=== PATIENT | female | born 1970 | race Caucasian/White ===

== ENCOUNTER 2020-04-09 17:27 | Emergency (ER) | payer OTHER, SELFPAY ==
[2020-04-09 17:55] VITALS: BP 122/81; PULSE 77; RESP 16; TEMP 36.8; O2SAT 100
--- NOTE | 2020-04-09 17:57 | ED.URI ---
HPI - URI/Sore Throat General Chief Complaint: Upper Respiratory Infection Stated Complaint: SORE THROAT Time Seen by Provider: 04/09/20 17:57 Source: patient and RN notes reviewed Mode of arrival: ambulatory Limitations: no limitations History of Present Illness HPI Narrative: 49-year-old female presents with concern for sore throat, pain with swallowing, fever, left ear pain. Reports exposure to strep throat. Reports she has been taking Tylenol and ibuprofen for pain relief. She denies rhinorrhea, nasal congestion, cough, difficulty breathing, headache, nausea, vomiting, chills, sweats, body aches, loss of sense of taste or smell. MD elicited complaint: sore throat Related Data Home Medications Medication Instructions Recorded Confirmed estradiol 2 mg PO DAILY 04/09/20 04/09/20 venlafaxine [Effexor] 37.5 mg PO DAILY 04/09/20 04/09/20 Allergies Allergy/AdvReac Type Severity Reaction Status Date / Time codeine Allergy Hives Verified 04/09/20 17:48 iodine Allergy Unknown Verified 04/09/20 17:48 Sulfa (Sulfonamide Allergy Unknown Verified 04/09/20 17:48 Antibiotics) Review of Systems Review of Systems: Narrative: CONSTITUTIONAL: Denies malaise, chills, sweats, or fever. EYES: Denies visual changes, redness, or discharge. ENT: Denies rhinorrhea, congestion, sinus pain, otalgia. Reports sore throat. CARDIOVASCULAR: Denies chest pain, palpitations, or edema. RESPIRATORY: Denies cough or dyspnea. GASTROINTESTINAL: Denies abdominal pain, nausea, vomiting, diarrhea SKIN: Denies rash or itching. MUSCULOSKELETAL: Denies myalgia. NEUROLOGIC: Denies headache. All systems reviewed & are unremarkable except as noted in HPI and below PMFSH Social History Social History Gender identity (if verbalized by the patient): Female Comments At time of signature, agree with nursing past medical, surgical, social and family history. There is no relevant family history pertinent to the presenting complaint Exam Narrative: Exam Narrative: GENERAL: Well-appearing, well-nourished, and in no acute distress. HEAD: Normocephalic EYES: PERRLA, conjunctivae clear ENT: Nares clear. Mucous membranes moist. TM pearly forman with dull light reflex bilaterally; no tragal tenderness. Oropharynx erythematous without lesions. Tonsils enlarged and without exudate, no drooling, no hoarseness, no trismus, uvula midline. NECK: Supple. No lymphadenopathy CHEST: Clear to auscultation, breath sounds equal. No wheezing, rhonchi, rales, or stridor. No respiratory distress, speaks in full sentences. HEART: Regular rate and rhythm. No murmur heard. SKIN: Warm, dry, no rash. NEURO: Alert and oriented x3. PSYCH: Normal mood and affect Course Course Emergency Course: Patient is aware of diagnosis, understands and agrees to treatment plan. Anticipatory guidance given. Patient agrees to follow-up as directed and is aware of reasons to seek care at the emergency department. Portions of this record may have been created with voice recognition software Vital Signs Vital signs: Vital Signs Temperature 98.2 F 04/09/20 17:55 Pulse Rate 77 04/09/20 17:55 Respiratory Rate 16 04/09/20 17:55 Blood Pressure 122/81 04/09/20 17:55 Pulse Oximetry 100 04/09/20 17:55 Temperature 98.2 F 04/09/20 17:55 Pulse Rate 77 04/09/20 17:55 Respiratory Rate 16 04/09/20 17:55 Blood Pressure 122/81 04/09/20 17:55 Pulse Oximetry 100 04/09/20 17:55 Reviewed. MDM - URI/Sore Throat MDM Narrative Medical decision making narrative: Differential diagnosis considered: Tran virus, strep pharyngitis, allergic rhinitis, upper respiratory tract infection, sinusitis, rhinosinusitis, nasopharyngitis. viral pharyngitis, otitis media, otitis externa, pneumonia, bronchitis, viral cough syndrome, viral syndrome, and influenza. Exam findings show no acute concerns or changes; patient is non-toxic appearing and is in no distress. Patient is appropriate for outpat
== END 2020-04-09 18:15 | disposition home or self-care (01) ==
PROVIDERS: Emergency Provider Nurse Practitioner; PCP Nurse Practitioner Family
DX: J02.0 Streptococcal pharyngitis (principal)
CPT/HCPCS: 87880; 99203; G0463

== ENCOUNTER 2020-12-12 08:06 | Outpatient (CLI) | payer OTHER, SELFPAY ==
--- NOTE | ~2020-12-12 | MR_ITS ---
EXAMINATION: MR shoulder RT wo con DATE: 12/12/2020 08:52 INDICATION: Right shoulder pain TECHNIQUE: Magnetic resonance imaging (MRI) of the right shoulder was performed without intravenous c ontrast. Sequences included axial PD-weighted FS FSE, coronal oblique PD-weighted FS FSE, coronal obl ique T2-weighted FS FSE, sagittal PD-weighted FS FSE, and sagittal T1-weighted SE. COMPARISON: None. FINDINGS: Coracoacromial arch: The acromion undersurface is curved in morphology (type II). Likely developmentally unfused meso acro mial os acromiale. Small cystic change along the apophyseal side of the synchondrosis. Anterior subac romial spurs at the acromial insertion of the otherwise normal coracoacromial ligament. Moderate acro mioclavicular osteoarthritis with subarticular cystic change at both sides of the joint space. Rotator cuff: Mild to moderate supraspinatus and infraspinatus tendinopathy. There is a moderate severity bursal si ded tear extending 1 cm AP along the superior facet footplate of the supraspinatus tendon and involve s greater than 50% of the tendon thickness. There is an additional bursal sided tear involving at severiano st 50% of the tendon thickness at the anterior half of the infraspinatus tendon. The tear with ragged margins originates approximately 2.5 cm from the greater tuberosity footplate. There is up to 2-2.5 cm retraction of the torn tendon fibers. The infraspinatus tendon is normal. Moderate subscapularis t endinopathy without discrete tear. Mild fatty atrophy of the subscapularis muscle belly. Biceps tendon, glenoid labrum and glenohumeral cartilage: Long head of the biceps tendon is normal. There is mild amorphous increased signal within the superio r glenoid labrum suggesting degeneration although no clearly defined linear labral tear is appreciate d. There is subarticular cystic change along the rim of the anterosuperior glenoid. Glenohumeral cart ilage is normal. Fluid: Increased fluid in the long head biceps tendon sheath which is disproportionate to the physiologic am ount fluid in the glenohumeral joint space consistent withmild bicipital tenosynovitis. No loose oste ochondral bodies. Fluid in the subacromial/subdeltoid bursa consistent with mild to moderate bursitis . Bones: Normal marrow signal aside from the previous noted degenerative subarticular cystic changes along the glenoid and at the acromioclavicular joint. Low signal intensity bone island at the inferior glenoid . IMPRESSION: 1. Mild supraspinatus and infraspinatus tendinopathy with moderate severity bursal sided tears at the superior facet footplate of the distal supraspinatus tendon and approximately 2.5 cm medial from the middle facet footplate of the infraspinatus tendon. 2. Likely mild degeneration of the superior glenoid labrum with cystic change along the underlying rosas perior rim of the glenoid. 3. Moderate acromioclavicular osteoarthritis. 4. 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 5. Moderate subacromial/subdeltoid bursitis. 6. Mild bicipital tenosynovitis. Reviewed, dictated and finalized at location A. IMPRESSION: 1. Mild supraspinatus and infraspinatus tendinopathy with moderate severity bur gianluca sided tears at the superior facet footplate of the distal supraspinatus ten don and approximately 2.5 cm medial from the middle facet footplate of the infr aspinatus tendon. 2. Likely mild degeneration of the superior glenoid labrum with cystic change a long the underlying superior rim of the glenoid. 3. Moderate acromioclavicular osteoarthritis. 4. 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 5. Moderate subacromial/subdeltoid bursitis. 6. Mild bicipital tenosynov
== END 2020-12-12 08:07 ==
PROVIDERS: PCP Nurse Practitioner Family; Visit Provider Orthopaedic Surgery
DX: M25.511 Pain in right shoulder (principal); M24.811 Other specific joint derangements of right shoulder, not elsewhere classified; M19.011 Primary osteoarthritis, right shoulder; M77.8 Other enthesopathies, not elsewhere classified; M75.51 Bursitis of right shoulder; M75.21 Bicipital tendinitis, right shoulder
CPT/HCPCS: 73221

== ENCOUNTER 2021-02-02 12:05 | Emergency (ER) | payer OTHER, SELFPAY ==
--- NOTE | 2021-02-02 12:08 | ED.URI ---
HPI - URI/Sore Throat General Chief Complaint: Upper Respiratory Infection Stated Complaint: SINUS PRESSURE/CONGESTION Time Seen by Provider: 02/02/21 12:08 Source: patient and RN notes reviewed History of Present Illness HPI Narrative: Patient is a 50-year-old female who presents the urgent care with complaints of nasal congestion, postnasal drainage, sinus congestion and pain. Patient states is been ongoing for approximately 3 weeks and she has tried a Delfina pot and [id number] [facility] medication . Patient denies any fevers, nausea, vomiting. No other acute complaints. No acute distress noted. Patient aware of the plan of care. Some parts of this dictation were generated by voice recognition software and may contain typographical and/or grammatical inaccuracies. Related Data Home Medications Medication Instructions Recorded Confirmed estradiol 2 mg PO DAILY 04/09/20 04/09/20 venlafaxine [Effexor] 37.5 mg PO DAILY 04/09/20 04/09/20 Allergies Allergy/AdvReac Type Severity Reaction Status Date / Time codeine Allergy Hives Verified 04/09/20 17:48 iodine Allergy Unknown Verified 04/09/20 17:48 Sulfa (Sulfonamide Allergy Unknown Verified 04/09/20 17:48 Antibiotics) Review of Systems Review of Systems: CONSTITUTIONAL: Denies fever, chills, or sweats. EYES: Denies visual changes, redness, or discharge. ENT: Reports of nasal congestion, sinus congestion, sinus pain CARDIOVASCULAR: Denies chest pain, palpitations, or edema. RESPIRATORY: Denies cough or dyspnea. GASTROINTESTINAL: Denies abdominal pain, nausea, vomiting, or diarrhea. GENITOURINARY: Denies dysuria or hematuria. SKIN: Denies rash or itching. MUSCULOSKELETAL: Denies back pain, joint pain, or myalgia. NEUROLOGIC: Denies headache, numbness, or weakness. All other systems reviewed are negative, except as documented in HPI. PMFSH Social History Social History Gender identity (if verbalized by the patient): Female Comments At the time of my signature, I reviewed and agree with the nursing past medical, surgical, social, and family history. There is no relevant family history pertinent to the patient complaint. Exam Narrative: GENERAL: This is a well-nourished, well-developed patient, in no apparent distress. HEAD: normocephalic, atraumatic. Frontal sinus tenderness EYES: PERRL. Sclera clear/white. Vision is grossly intact. Mild bilateral injected conjunctive a with clear drainage EARS: External ears normal, auditory canals clear and without drainage, TMs normal without perforation. Hearing grossly intact. NOSE: External nose normal with no obvious nasal discharge, nares without redness, clear rhinorrhea. THROAT: Mucous membranes moist, posterior pharynx clear. Moderate postnasal drainage NECK: Neck supple CARDIOVASCULAR: Regular rate and rhythm without murmurs, gallops, or rubs. RESPIRATORY: Clear to auscultation. Breath sounds equal bilaterally. No wheezes, rales, or rhonchi. SKIN: warm, intact with no suspicious lesions or rash, good texture and turgor. NEURO: awake, alert, and oriented to person, place and time. There were no obvious focal neurologic abnormalities. EXTREMITIES: No clubbing, cyanosis, or edema. Course Vital Signs Vital signs: Vital Signs Temperature 97.7 F 02/02/21 12:12 Pulse Rate 82 02/02/21 12:12 Respiratory Rate 12 02/02/21 12:12 Blood Pressure 109/80 02/02/21 12:12 Pulse Oximetry 98 02/02/21 12:12 Temperature 97.7 F 02/02/21 12:16 Pulse Rate 82 02/02/21 12:16 Respiratory Rate 12 02/02/21 12:16 Blood Pressure 109/80 02/02/21 12:16 Pulse Oximetry 98 02/02/21 12:16 Reviewed MDM - URI/Sore Throat MDM Narrative Medical decision making narrative: Advised the patient to complete the antibiotic regimen as prescribed. Complete the steroid regimen as prescribed. Start using Monistat with the antibiotic and take the Diflucan after the antibiotic has completed. Be sure to eat and
[2021-02-02 12:12] VITALS: BP 109/80; PULSE 82; RESP 12; TEMP 36.5; O2SAT 98
[2021-02-02 12:16] VITALS: BP 109/80; PULSE 82; RESP 12; TEMP 36.5; O2SAT 98
== END 2021-02-02 12:26 | disposition home or self-care (01) ==
PROVIDERS: Emergency Provider Nurse Practitioner Family; PCP Nurse Practitioner Family
DX: J32.9 Chronic sinusitis, unspecified (principal)
CPT/HCPCS: 99213; G0463

== ENCOUNTER 2021-05-18 11:46 | Emergency (ER) | payer OTHER, SELFPAY ==
--- NOTE | ~2021-05-18 | XR_ITS ---
EXAMINATION: XR chest 2V DATE: 05/18/2021 12:21 INDICATION: Cough, head congestion TECHNIQUE: PA and lateral views of the chest are obtained. COMPARISON: None available FINDINGS: There is subtle patchy airspace opacities of the midlung zones. There is no pleural effusio n or pneumothorax. The cardiomediastinal silhouette is normal. There is mild thoracic spondylosis. IMPRESSION: 1. Subtle airspace opacities of the midlung zones, likely pneumonia. Reviewed, dictated and finalized at location A. 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
[2021-05-18 11:53] VITALS: BP 132/78; PULSE 79; RESP 12; TEMP 36.4; O2SAT 98
--- NOTE | 2021-05-18 11:57 | ED.GENADULT ---
HPI - General Adult General Chief complaint: Upper Respiratory Infection Stated complaint: Congestion, cough, sinus headache, swollen throat Time Seen by Provider: 05/18/21 11:58 Source: patient and RN notes reviewed Mode of arrival: ambulatory Limitations: no limitations History of Present Illness HPI narrative: 50 y/o female presented for c/o sinus pressure, sore throat, and productive cough for 2 months. Coughing thick mucous and blood tinged sputum, endorses occasional nose bleeds. Denies sob, wheezing, chest pain, n/v/d/f/c. Rates throat pain 09/10. Taking cough drops and nasal spray for sx. Not vaccinated for covid. Endorses sick contacts. Related Data Home Medications Medication Instructions Recorded Confirmed estradiol 2 mg PO DAILY 04/09/20 04/09/20 venlafaxine [Effexor] 37.5 mg PO DAILY 04/09/20 04/09/20 Allergies Allergy/AdvReac Type Severity Reaction Status Date / Time codeine Allergy Hives Verified 04/09/20 17:48 iodine Allergy Unknown Verified 04/09/20 17:48 Sulfa (Sulfonamide Allergy Unknown Verified 04/09/20 17:48 Antibiotics) Review of Systems Review of Systems: CONSTITUTIONAL: Denies malaise, chills, sweats, fever EYES: Denies visual changes, redness, or discharge ENT: Reports rhinorrhea, congestion, sinus pain, otalgia, sore throat CARDIOVASCULAR: Denies chest pain, palpitations, edema RESPIRATORY: Reports cough, post nasal drainage. Denies dyspnea GASTROINTESTINAL: Denies abdominal pain, nausea, vomiting, diarrhea SKIN: Denies rash or itching MUSCULOSKELETAL: denies myalgia NEUROLOGIC: Denies headache [facility] Social History Social History Gender identity (if verbalized by the patient): Female Exam Narrative: GENERAL: Ill-appearing, nontoxic no acute distress. HEAD: Normocephalic EYES: PERRLA, conjunctivae clear ENT: Mucous membranes moist. TM pearly forman with dull light reflex bilaterally; no tragal tenderness. Oropharynx with tonsils 2+, erythematous without lesions or exudate, no drooling, no hoarseness, no trismus, uvula midline. No tripod positioning, muffled voice, soft palate or pharyngeal wall bulging NECK: Supple. No lymphadenopathy CHEST: Clear to auscultation, breath sounds equal. No wheezing, rhonchi, rales, or stridor. No respiratory distress, speaks in full sentences. HEART: Regular rate and rhythm. No murmur heard. SKIN: Warm, dry, no rash. NEURO: Alert and oriented x3. PSYCH: Normal mood and affect Course Course Emergency Course: covid positive cxr reviewed with pt requesting fluconazole after abx Patient is aware of diagnosis, understands and agrees to treatment plan. Anticipatory guidance given. Patient agrees to follow-up as directed and is aware of reasons to seek care at the emergency department. Portions of this record may have been created with voice recognition software Level of Care: Express Care Visit Vital Signs Vital signs: Vital Signs Temperature 97.6 F 05/18/21 11:53 Pulse Rate 79 05/18/21 11:53 Respiratory Rate 12 05/18/21 11:53 Blood Pressure 132/78 05/18/21 11:53 Pulse Oximetry 98 05/18/21 11:53 Temperature 97.6 F 05/18/21 11:53 Pulse Rate 79 05/18/21 11:53 Respiratory Rate 12 05/18/21 11:53 Blood Pressure 132/78 05/18/21 11:53 Pulse Oximetry 98 05/18/21 11:53 reviewed Medical Decision Making Differential Diagnosis Differential Diagnosis: Differential diagnosis considered: Tran virus, strep pharyngitis, allergic rhinitis, upper respiratory tract infection, sinusitis, rhinosinusitis, nasopharyngitis. viral pharyngitis, otitis media, otitis externa, pneumonia, bronchitis, viral cough syndrome, viral syndrome, and influenza. Exam findings show no acute concerns or changes; patient is non-toxic appearing and is in no distress. Patient is appropriate for outpatient treatment and follow-up. Vital Signs Vital Signs: Vital Signs Temperature 97.6
== END 2021-05-18 12:46 | disposition home or self-care (01) ==
PROVIDERS: Emergency Provider Nurse Practitioner Family; PCP Nurse Practitioner Family
DX: U07.1 COVID-19 (principal); J22 Unspecified acute lower respiratory infection
CPT/HCPCS: 71046; 87426; 99213; C9803; G0463

== ENCOUNTER 2021-07-16 17:53 | Emergency (ER) | payer OTHER, SELFPAY ==
[2021-07-16 18:01] VITALS: BP 119/75; PULSE 73; RESP 16; TEMP 36.3; O2SAT 99
--- NOTE | 2021-07-16 18:16 | ED.URI ---
HPI - URI/Sore Throat General Chief Complaint: Upper Respiratory Infection Stated Complaint: left side facial swelling Time Seen by Provider: 07/16/21 18:19 Source: patient, family, RN notes reviewed and old records reviewed Mode of arrival: ambulatory Limitations: no limitations History of Present Illness HPI Narrative: 51-year-old female presents to the [facility] with complaints of swelling to the left side of the face that started yesterday. Has had chronic sinus issues had intermittent bloody noses since having Covid in May. Has not followed up with a primary care provider. No treatment prior to arrival. MD elicited complaint: nasal congestion and sinus pain Related Data Home Medications Medication Instructions Recorded Confirmed estradiol 2 mg PO DAILY 04/09/20 07/16/21 venlafaxine [Effexor] 37.5 mg PO DAILY 04/09/20 07/16/21 Allergies Allergy/AdvReac Type Severity Reaction Status Date / Time codeine Allergy Hives Verified 07/16/21 18:28 iodine Allergy Unknown Verified 07/16/21 18:28 Sulfa (Sulfonamide Allergy Unknown Verified 07/16/21 18:28 Antibiotics) Review of Systems Review of Systems: All systems reviewed & are unremarkable except as noted in HPI and below Constitutional: Constitutional: Reports no additional constitutional complaints, Denies chills, Denies fever(s) and Denies headache(s) Eyes: Eyes: Reports no additional eye complaints ENT: Reports as per HPI, Denies vertigo, Denies dizziness, Denies ear discharge, Reports facial pain, Denies headache(s), Denies lip swelling, Reports nasal congestion, Denies nasal discharge, Reports sinus pain (Left), Reports sinus pressure (Left), Denies sore throat, Denies throat swelling and Denies tongue swelling Cardiovascular: Cardiovascular: Reports no additional cardiovascular complaints, Denies chest pain, Denies syncope, Denies rapid heart rate and Denies dyspnea Respiratory: Respiratory: Reports no additional respiratory complaints, Denies cough, Denies dyspnea and Denies wheezing Gastrointestinal: Gastrointestinal: Reports no additional gastrointestinal complaints, Denies abdominal pain, Denies diarrhea, Denies nausea and Denies vomiting Musculoskeletal: Musculoskeletal: Reports no additional musculoskeletal complaints and Denies numbness Integumentary/Breasts: Skin/Breast: Reports system reviewed and no additional complaints, except as docu Neurologic: Reports system reviewed and no additional complaints, except as documented, Denies vertigo, Denies dizziness, Denies syncope, Denies headache(s), Denies focal weakness and Denies numbness Psychiatric: Psychiatric: Reports no additional psychiatric complaints Allergic/Immunologic: Allergic/Immunologic: Reports no additional allergic/immunologic complaints and Denies wheezing PMFSH Social History Social History Gender identity (if verbalized by the patient): Female Comments At the time of my signature, I reviewed and agree with the nursing past medical, surgical, social, and family history. There is no relevant family history pertinent to the patient complaint. Exam Const: General: cooperative, healthy appearing, no acute distress, well developed and alert Nutritional Appearance: well nourished Orientation/consciousness: patient oriented x3 Limitations: no limitations HENMT: Head: normal to inspection Ears: external ears normal, TM's normal bilaterally and Abnormal EAC present General nose exam: Normal external nose present and Abnormal mucous membranes and turbinates present boggy bilateral and erythematous bilateral Face and sinus: no erythema, no fluctuance, no lacerations, sinus tenderness frontal (Left) and maxillary (Left) and other (Minor inflammation to the left side of the face without sign of erythema) Mouth: Yes lip normal and Yes moist mucous membranes Throat: posterior oropharynx normal and uvula midline Eyes: Conjunctivae:
== END 2021-07-16 18:35 | disposition home or self-care (01) ==
PROVIDERS: Emergency Provider Nurse Practitioner
DX: J32.9 Chronic sinusitis, unspecified (principal); R04.0 Epistaxis; F41.9 Anxiety disorder, unspecified; F32.A Depression, unspecified; Z86.16 Personal history of COVID-19
CPT/HCPCS: 99213; G0463

== ENCOUNTER 2022-04-03 12:14 | Emergency (ER) | payer OTHER, SELFPAY ==
[2022-04-03 12:24] VITALS: BP 107/76; PULSE 82; RESP 16; TEMP 36.6; O2SAT 99
--- NOTE | 2022-04-03 12:39 | ED.URI ---
HPI - URI/Sore Throat General Chief Complaint: Upper Respiratory Infection Stated Complaint: Cough/ Bloody Nose Time Seen by Provider: 04/03/22 12:41 Source: patient, RN notes reviewed and old records reviewed Mode of arrival: ambulatory Limitations: no limitations History of Present Illness HPI Narrative: 51-year-old female presents to the [facility] with 3-4 weeks of sinus congestion, intermittent bloody noses, worsening of symptoms over the last week. Now complaining of ear pressure worse on the right than the left. Denies any chest pain or shortness of breath. No coughing. Denies abdominal pain Onset (ago): week(s) (3-4) Related Data Home Medications Medication Instructions Recorded Confirmed estradiol 2 mg tablet 2 mg PO DAILY 04/09/20 04/03/22 venlafaxine 37.5 mg 37.5 mg PO DAILY 04/03/22 04/03/22 capsule,extended release 24 hr Allergies Allergy/AdvReac Type Severity Reaction Status Date / Time codeine Allergy Hives Verified 04/03/22 12:43 iodine Allergy Unknown Verified 04/03/22 12:43 Sulfa (Sulfonamide Allergy Unknown Verified 04/03/22 12:43 Antibiotics) Review of Systems Review of Systems: All systems reviewed & are unremarkable except as noted in HPI and below Constitutional: Constitutional: Reports no additional constitutional complaints Eyes: Eyes: Reports no additional eye complaints ENT: Reports as per HPI, Reports otalgia, Reports facial pain (right sinus), Denies hoarseness, Denies lip swelling, Reports nasal congestion, Reports post nasal drip and Reports sore throat Cardiovascular: Cardiovascular: Reports no additional cardiovascular complaints, Denies chest pain and Denies dyspnea Respiratory: Respiratory: Reports no additional respiratory complaints, Denies chest congestion, Denies cough and Denies dyspnea Gastrointestinal: Gastrointestinal: Reports no additional gastrointestinal complaints, Denies abdominal pain, Denies nausea and Denies vomiting Musculoskeletal: Musculoskeletal: Reports no additional musculoskeletal complaints Integumentary/Breasts: Skin/Breast: Reports system reviewed and no additional complaints, except as docu Neurologic: Reports system reviewed and no additional complaints, except as documented Psychiatric: Psychiatric: Reports no additional psychiatric complaints Allergic/Immunologic: Allergic/Immunologic: Reports no additional allergic/immunologic complaints PMFSH Past Medical History Medical History Anxiety Arthritis Chronic nonspecific colitis Osteoporosis screening Rheumatoid arthritis with rheumatoid factor of multiple sites without organ or systems involvement Rotator cuff tear arthropathy of right shoulder Surgical History Surgical History H/O: hysterectomy Hx of right knee surgery Hx of shoulder surgery Family History Family History Father Cancer Hypertension Diabetes mellitus Depression Heart disease Mother Breast cancer Lung cancer Social History Social History Smoking status: Never smoker Second hand tobacco smoke exposure: No Alcohol intake: unknown Substance use: never Substance use type: does not use 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 There is no relevant family history pertinent to the patient complaint. Exam Const: General: cooperative, healthy appearing, comfortable, no acute distress, well developed, alert and well nourish
== END 2022-04-03 12:56 | disposition home or self-care (01) ==
PROVIDERS: Emergency Provider Nurse Practitioner; PCP Nurse Practitioner Family
DX: J01.40 Acute pansinusitis, unspecified (principal); M19.90 Unspecified osteoarthritis, unspecified site; M05.9 Rheumatoid arthritis with rheumatoid factor, unspecified; F41.9 Anxiety disorder, unspecified
CPT/HCPCS: 99213; G0463

== ENCOUNTER 2022-04-28 17:23 | Emergency (ER) | payer OTHER, SELFPAY ==
[2022-04-28 17:31] VITALS: BP 116/79; PULSE 74; RESP 18; TEMP 36.3; O2SAT 100
--- NOTE | 2022-04-28 17:38 | ED.URI ---
HPI - URI/Sore Throat General Chief Complaint: Upper Respiratory Infection Stated Complaint: Ear/Nose/ Throat Time Seen by Provider: 04/28/22 18:11 Source: patient and RN notes reviewed Mode of arrival: ambulatory Limitations: no limitations History of Present Illness HPI Narrative: 51-year-old female presents with concern for ongoing sinus pain, pressure, nasal dryness, ear pressure, postnasal drainage, cough. Reports symptoms started in early March. She was treated for sinusitis in early April with Augmentin and Medrol Dosepak. She reports the symptoms improved but did not resolve. She reports symptoms have worsened. She reports she has taken multiple [id number] sinus medications without relief. She has not done sinus rinses. MD elicited complaint: nasal congestion and sinus pain Related Data Home Medications Medication Instructions Recorded Confirmed estradiol 2 mg tablet 2 mg PO DAILY 04/09/20 04/28/22 venlafaxine 37.5 mg 37.5 mg PO DAILY 04/03/22 04/28/22 capsule,extended release 24 hr Allergies Allergy/AdvReac Type Severity Reaction Status Date / Time codeine Allergy Hives Verified 04/28/22 17:30 iodine Allergy Unknown Verified 04/28/22 17:30 Sulfa (Sulfonamide Allergy Unknown Verified 04/28/22 17:30 Antibiotics) Review of Systems Review of Systems: CONSTITUTIONAL: Denies malaise, chills, sweats, or fever. EYES: Denies visual changes, redness, or discharge. ENT: Reports rhinorrhea, congestion, sinus pain, otalgia. Denies sore throat. CARDIOVASCULAR: Denies chest pain, palpitations, or edema. RESPIRATORY: Reports cough. Denies dyspnea. GASTROINTESTINAL: Denies abdominal pain, nausea, vomiting, diarrhea SKIN: Denies rash or itching. MUSCULOSKELETAL: Denies myalgia. NEUROLOGIC: Reports headache. All systems reviewed & are unremarkable except as noted in HPI and below PMFSH Past Medical History Medical History Anxiety Arthritis Chronic nonspecific colitis Osteoporosis screening Rheumatoid arthritis with rheumatoid factor of multiple sites without organ or systems involvement Rotator cuff tear arthropathy of right shoulder Surgical History Surgical History H/O: hysterectomy Hx of right knee surgery Hx of shoulder surgery Family History Family History Father Cancer Hypertension Diabetes mellitus Depression Heart disease Mother Breast cancer Lung cancer Social History Social History Smoking status: Never smoker Second hand tobacco smoke exposure: No Alcohol intake: unknown Substance use: never Substance use type: does not use Living arrangements: with family Occupation/Education: occupation 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 There is no relevant family history pertinent to the presenting complaint Exam Narrative: GENERAL: Well-appearing, well-nourished, and in no acute distress. HEAD: Normocephalic EYES: PERRLA, conjunctivae clear ENT: Nares clear, turbinates edematous and erythematous, sinus tenderness. Mucous membranes moist. TM pearly forman with dull light reflex bilaterally; no tragal tenderness. Oropharynx not erythematous without lesions. Tonsils not enlarged and without exudate, no drooling, no hoarseness, no trismus, uvula midline. NECK: Supple. No lymphadenopathy CHEST: Clear to auscultation, breath sounds equal. No wheezing, rhonchi, rales, or stridor. No respiratory distress, speaks in full sen
== END 2022-04-28 18:23 | disposition home or self-care (01) ==
PROVIDERS: Emergency Provider Nurse Practitioner; PCP Nurse Practitioner Family
DX: J01.90 Acute sinusitis, unspecified (principal); F41.9 Anxiety disorder, unspecified; M19.90 Unspecified osteoarthritis, unspecified site; M05.79 Rheumatoid arthritis with rheumatoid factor of multiple sites without organ or systems involvement
CPT/HCPCS: 99213; G0463

== ENCOUNTER 2022-07-24 11:41 | Emergency (ER) | payer OTHER, SELFPAY ==
[2022-07-24 12:16] VITALS: BP 125/83; PULSE 82; RESP 16; TEMP 36.9; O2SAT 99
--- NOTE | 2022-07-24 12:19 | ED.URI ---
HPI - URI/Sore Throat General Chief Complaint: Upper Respiratory Infection Stated Complaint: uri Time Seen by Provider: 07/24/22 12:19 Source: patient Mode of arrival: ambulatory Limitations: no limitations History of Present Illness HPI Narrative: 52-year-old female presents with complaint of nasal congestion, sinus pressure, headaches, runny nose, postnasal drainage for the past 3 weeks. Reports that this would be her 4th sinus infection since April. Is scheduled to see an ENT specialist August 03. Her last antibiotic was over a month ago and she took doxycycline. She is taking daily allergy medications. She does not want to take steroids due to feeling very emotional last time she took them. Afebrile. Reports she began having drainage and redness to left eye yesterday. All systems reviewed and negative except as noted above. Related Data Home Medications Medication Instructions Recorded Confirmed estradiol 2 mg tablet 2 mg PO DAILY 04/09/20 07/24/22 venlafaxine 37.5 mg 37.5 mg PO DAILY 04/03/22 07/24/22 capsule,extended release 24 hr fluticasone propionate 50 1 spray intranasal DAILY 07/24/22 07/24/22 mcg/actuation nasal spray,suspension loratadine 10 mg tablet 10 mg PO DAILY 07/24/22 07/24/22 zolpidem 10 mg tablet 10 mg PO DAILY 07/24/22 07/24/22 Allergies Allergy/AdvReac Type Severity Reaction Status Date / Time codeine Allergy Intermediate Hives Verified 07/24/22 12:35 iodine Allergy Intermediate Hives Verified 07/24/22 12:35 Sulfa (Sulfonamide Allergy Intermediate Hives Verified 07/24/22 12:35 Antibiotics) Review of Systems Review of Systems: CONSTITUTIONAL: Denies fever, chills, or sweats. EYES: Denies visual changes. Reports redness and discharge left eye. ENT: Reports rhinorrhea, congestion, sinus pressure. Denies sore throat, or otalgia. CARDIOVASCULAR: Denies chest pain, palpitations, or edema. RESPIRATORY: Denies cough or dyspnea. GASTROINTESTINAL: Denies abdominal pain, nausea, vomiting, or diarrhea. GENITOURINARY: Denies dysuria or hematuria. SKIN: Denies rash or itching. MUSCULOSKELETAL: Denies back pain, joint pain, or myalgia. NEUROLOGIC: reports headache. Denies numbness, or weakness. PSYCHIATRIC: Denies anxiety or depression. All other systems reviewed are negative, except as documented in HPI. [facility] Past Medical History Medical History Anxiety Arthritis Chronic nonspecific colitis Osteoporosis screening Rheumatoid arthritis with rheumatoid factor of multiple sites without organ or systems involvement Rotator cuff tear arthropathy of right shoulder Surgical History Surgical History H/O: hysterectomy Hx of right knee surgery Hx of shoulder surgery Family History Family History Father Cancer Hypertension Diabetes mellitus Depression Heart disease Mother Breast cancer Lung cancer Social History Social History Smoking status: Never smoker Second hand tobacco smoke exposure: No Alcohol intake: unknown Substance use: never Substance use type: does not use Living arrangements: with family Occupation/Education: occupation 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 There is no relevant family history pertinent to the presenting complaint. Exam Narrative: GENERAL: This is a well-nourished, well-developed patient, in no apparent distress. HEAD: normocephalic, atraumatic. EYES: PERRL. left scl
== END 2022-07-24 12:44 | disposition home or self-care (01) ==
PROVIDERS: Emergency Provider Nurse Practitioner Family
DX: J01.90 Acute sinusitis, unspecified (principal); H10.32 Unspecified acute conjunctivitis, left eye; M19.90 Unspecified osteoarthritis, unspecified site; M05.9 Rheumatoid arthritis with rheumatoid factor, unspecified; F41.9 Anxiety disorder, unspecified
CPT/HCPCS: 99213; G0463

== ENCOUNTER 2023-01-25 09:01 | Emergency (ER) | payer OTHER, SELFPAY ==
--- NOTE | 2023-01-25 09:02 | ED.URI ---
HPI - URI/Sore Throat General Chief Complaint: Upper Respiratory Infection Stated Complaint: Sinus Time Seen by Provider: 01/25/23 09:02 Source: patient Mode of arrival: ambulatory Limitations: no limitations History of Present Illness HPI Narrative: Patient is a 52 year old female that presents with sinus pressure/pain, right ear fullness and nose bleed that started in the middle of the night. Reports symptoms have been persistent for 2 months and have only worsened. Has had multiple sinus infections this year and was seen by ENT in August. Has not had a sinus infection since. Patient is currently out of allergy medication. Patient states she has still been using nasal rinses with no relief. Related Data Home Medications Medication Instructions Recorded Confirmed estradiol 2 mg tablet 2 mg PO DAILY 04/09/20 01/25/23 venlafaxine 37.5 mg 37.5 mg PO DAILY 04/03/22 01/25/23 capsule,extended release 24 hr fluticasone propionate 50 1 spray intranasal DAILY 07/24/22 01/25/23 mcg/actuation nasal spray,suspension loratadine 10 mg tablet 10 mg PO DAILY 07/24/22 01/25/23 zolpidem 10 mg tablet 10 mg PO DAILY 07/24/22 01/25/23 Allergies Allergy/AdvReac Type Severity Reaction Status Date / Time codeine Allergy Intermediate Hives Verified 01/25/23 09:18 iodine Allergy Intermediate Hives Verified 01/25/23 09:18 Sulfa (Sulfonamide Allergy Intermediate Hives Verified 01/25/23 09:18 Antibiotics) Review of Systems Review of Systems: All systems reviewed & are unremarkable except as noted in HPI and below Constitutional: Constitutional: Denies body ache(s), Denies chills, Denies fatigue, Denies fever(s), Denies headache(s), Denies malaise and Denies weakness Eyes: Eyes: Denies blurry vision, Denies itchy eyes and Denies loss of vision ENT: Reports otalgia (Ear fullness), Denies headache(s), Reports epistaxis, Reports nasal congestion, Reports sinus pain, Reports sinus pressure and Denies sore throat Cardiovascular: Cardiovascular: Denies chest pain, Denies irregular heart rhythm and Denies dyspnea Respiratory: Respiratory: Reports cough and Denies dyspnea Gastrointestinal: Gastrointestinal: Denies abdominal pain, Denies diarrhea, Denies nausea and Denies vomiting Musculoskeletal: Musculoskeletal: Denies back pain, Denies myalgias and Denies arthralgias Integumentary/Breasts: Skin/Breast: Denies pruritus and Denies rash Neurologic: Denies headache(s), Denies loss of vision and Denies weakness Psychiatric: Psychiatric: Reports no additional psychiatric complaints Endocrine: Endocrine: Denies fatigue Allergic/Immunologic: Allergic/Immunologic: Denies itchy eyes PMFSH Past Medical History Medical History Anxiety Arthritis Chronic nonspecific colitis Osteoporosis screening Rheumatoid arthritis with rheumatoid factor of multiple sites without organ or systems involvement Rotator cuff tear arthropathy of right shoulder Surgical History Surgical History H/O: hysterectomy Hx of right knee surgery Hx of shoulder surgery Family History Family History Father Cancer Hypertension Diabetes mellitus Depression Heart disease Mother Breast cancer Lung cancer Social History Social History Smoking status: Never smoker Second hand tobacco smoke exposure: No Alcohol intake: unknown Substance use: never Substance use type: does not use Living arrangements: with family Occupation/Education: occupation 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
[2023-01-25 09:11] VITALS: BP 116/87; PULSE 80; RESP 16; TEMP 36.7; O2SAT 98
== END 2023-01-25 09:27 | disposition home or self-care (01) ==
PROVIDERS: Emergency Provider Nurse Practitioner Family; PCP Nurse Practitioner Family
DX: J01.90 Acute sinusitis, unspecified (principal); M19.90 Unspecified osteoarthritis, unspecified site; M05.79 Rheumatoid arthritis with rheumatoid factor of multiple sites without organ or systems involvement; F41.9 Anxiety disorder, unspecified
CPT/HCPCS: 99213; G0463

== ENCOUNTER 2023-01-27 15:19 | Outpatient (CLI) | payer OTHER, SELFPAY ==
--- NOTE | ~2023-01-27 | CT_ITS ---
EXAMINATION: CT sinus wo con DATE: 01/27/2023 15:33 INDICATION: Chronic sinusitis TECHNIQUE: Computed tomography (CT) of the paranasal sinuses was performed without intravenous contra st. The dose-length product was 279.12 mGy-cm. Automated exposure control and iterative reconstructio n technique were employed. COMPARISON: None FINDINGS: There is mild mucosal thickening of the maxillary sinuses. No air-fluid levels. Mastoids ar e pneumatized. No mucoperiosteal reaction. Rightward nasal septal deviation. Ostiomeatal units are pa tent. IMPRESSION: 1. Mild maxillary sinus disease. Reviewed, dictated and finalized at location B.
== END 2023-01-27 15:20 ==
PROVIDERS: PCP Family Medicine; Visit Provider Otolaryngology
DX: J32.0 Chronic maxillary sinusitis (principal)
CPT/HCPCS: 70486

== ENCOUNTER 2023-03-17 17:58 | Emergency (ER) | payer OTHER, SELFPAY ==
[2023-03-17] VITALS (20 sets, daily range): BP systolic 106–131; BP diastolic 73–94; PULSE 67–81; RESP 14–19; O2SAT 97–100
--- NOTE | 2023-03-17 20:05 | ED.GENADULT ---
HPI - General Adult General Chief complaint: Epistaxis Stated complaint: epitaxis Time Seen by Provider: 03/17/23 19:14 History of Present Illness HPI narrative: patient is a 52-year-old female presents emerged department with chief complaint of epistaxis. Patient reports that she had a septoplasty done today at [facility] by Dr. Parson patient states that when she went home she started having bleeding out of her nostrils. The patient reports a large amount of blood and reports that she feels as though the packing has migrated to the tip of her nose on the left side. Patient reports that she has having pain and has not been able to take her oral pain medications yet the patient denies being on blood thinners denies history of bleeding disorder. Related Data Home Medications Medication Instructions Recorded Confirmed estradiol 2 mg tablet 2 mg PO DAILY 04/09/20 01/25/23 venlafaxine 37.5 mg 37.5 mg PO DAILY 04/03/22 01/25/23 capsule,extended release 24 hr fluticasone propionate 50 1 spray intranasal DAILY 07/24/22 01/25/23 mcg/actuation nasal spray,suspension loratadine 10 mg tablet 10 mg PO DAILY 07/24/22 01/25/23 zolpidem 10 mg tablet 10 mg PO DAILY 07/24/22 01/25/23 Allergies Allergy/AdvReac Type Severity Reaction Status Date / Time codeine Allergy Intermediate Hives Verified 03/17/23 18:07 iodine Allergy Intermediate Hives Verified 03/17/23 18:07 Sulfa (Sulfonamide Allergy Intermediate Hives Verified 03/17/23 18:07 Antibiotics) Review of Systems Review of Systems: A 10 system review of systems was completed on the patient and is negative except for what is stated in the HPI. Nursing and ancillary documentation was reviewed. [facility] Past Medical History Medical History Anxiety Arthritis Chronic nonspecific colitis Osteoporosis screening Rheumatoid arthritis with rheumatoid factor of multiple sites without organ or systems involvement Rotator cuff tear arthropathy of right shoulder Surgical History Surgical History H/O: hysterectomy Hx of right knee surgery Hx of shoulder surgery Family History Family History Father Cancer Hypertension Diabetes mellitus Depression Heart disease Mother Breast cancer Lung cancer Social History Social History Smoking status: Never smoker Second hand tobacco smoke exposure: No Alcohol intake: unknown Substance use: never Substance use type: does not use Living arrangements: with family Occupation/Education: occupation 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 HEAD: Normocephalic, atraumatic. EYES: PERRLA and EOMI. ENT: Nares clear, no rhinorrhea or epistaxis. Mucous membranes moist. There is dried blood around the nostrils. There is packing present that is in the anterior portion of the left nostril NECK: Supple. CHEST: Clear to auscultation. No respiratory distress. HEART: Regular rate and rhythm. No murmur heard. Normal peripheral pulses. ABDOMEN: Soft, nontender, nondistended, normal active bowel sounds. EXTREMITIES: Normal range of motion. No edema. SKIN: Warm, dry, no rash. NEURO: No focal deficits. Alert and oriented x3. PSYCH: Normal mood and affect. Course Vital Signs Vital signs: Vital Signs Pulse Rate 81 03/17/23 17:56 Respiratory Rate 18 03/17/23 17:56 Blood Pressure 117/86 03/17/23 17:56 Pulse Oximetry 1
[2023-03-17] MEDS: MORPHINE SULFATE (*CRX) 2 MG/ML INJ IV PUSH (20:07)
[2023-03-17] MEDS: ONDANSETRON INJ 4 MG/2 ML VIAL IV PUSH (20:07)
[2023-03-17 20:09] LABS: Basophils Percent Auto 0.2 % (0.2-1.2); Eosinophils Percent Auto 0.2 % (0-4.4); Hematocrit 37.9 % (37.0-47.0); Hemoglobin 12.4 g/dL (12.0-15.0); Immature Granulocyte Absolute 0.07 K/mm3 (0.00-0.031); Immature Granulocyte Percent A 0.4 % (0-0.5); Lymphocytes Absolute Auto 0.68 K/mm3 (0.9-3.2); Mean Corpuscular HGB Conc 32.7 g/dl (32-36); Mean Corpuscular Hemoglobin 29.5 pg (26-34); Mean Platelet Volume 12.5 fl (7.4-10.4); Monocytes Absolute Auto 0.9 K/mm3 (0.1-0.6); Monocytes Percent Auto 5.4 % (2.6-8.5); Neutrophils Absolute Auto 15.1 K/mm3 (1.3-6.7); Neutrophils Percent Auto 89.8 % (45.5-73.1); Platelet Count Result 190 k/mm3 (150-375); Red Blood Count 4.21 M/mm3 (4.2-5.4); Red Cell Distribution Width 13.2 % (11.5-14.5); White Blood Count 16.8 K/mm3 (4.5-10.0)
[2023-03-17] MEDS: OXYMETAZOLINE HCL 0.05% NAS 15 ML BTL (*BKC) 1 SPRAY NASAL (20:10)
[2023-03-17 20:26] LABS: Alanine Aminotransferase 14 U/L (6-35); Albumin Level 4.2 g/dL (3.5-5.1); Alkaline Phosphatase 68 U/L (38-126); Anion Gap 6 mmol/L (8-16); Aspartate Amino Transferase 28 U/L (14-36); Bilirubin,Total 0.5 mg/dL (0.2-1.3); Blood Urea Nitrogen 15 mg/dL (7-17); Calcium 9.1 mg/dL (8.4-10.2); Carbon Dioxide 26 mmol/L (22-30); Chloride 104 mmol/L (98-107); Estimated CRCL calculation 75 ml/min; Estimated Glomerular Filt Rate > 60; Glucose 132 mg/dL (65-110); Potassium 4.2 mmol/L (3.4-5.0); Sodium 136 mmol/L (137-145)
[2023-03-17 20:42] LABS: INR 0.9; Prothrombin Time 12.8 Seconds (11.1-14.7)
[2023-03-17 20:43] LABS: Partial Thromboplastin Time 25.1 SECONDS (22.3-36.8)
== END 2023-03-17 21:26 | disposition home or self-care (01) ==
PROVIDERS: Emergency Provider Emergency Medicine; PCP Family Medicine
DX: R04.0 Epistaxis (principal)
CPT/HCPCS: 36415; 80053; 85025; 85610; 85730; 96374; 96375; 99284; A9270; J2270; J2405

== ENCOUNTER 2023-06-02 14:33 | Emergency (ER) | payer OTHER, SELFPAY ==
--- NOTE | ~2023-06-02 | XR_ITS ---
EXAMINATION: XR hand LT min 3V INDICATION: Left hand pain TECHNIQUE: Three views of the left hand are obtained. COMPARISON: None available FINDINGS: There is a small osseous fragment projecting dorsal to the second middle phalanx near the d istal interphalangeal joint. There are 2 mm of medial subluxation of the second distal phalanx with r espect to the middle phalanx. 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 Moderate osteoarthritis is also noted at the first carpometacarpal joint. There is mild soft ti ssue swelling of the second finger. IMPRESSION: 1. Findings suggestive small dorsal avulsion fracture near the second distal interphalangeal joint wi th mild medial subluxation of the second distal phalanx with respect to the middle phalanx. Reviewed, dictated and finalized at location F. CARE ATTENDANT IMPRESSION: 1. Findings suggestive small dorsal avulsion fracture near the second distal in terphalangeal joint with mild medial subluxation of the second distal phalanx w ith respect to the middle phalanx.
[2023-06-02 14:50] VITALS: BP 123/97; PULSE 82; RESP 16; TEMP 36.7; O2SAT 99
--- NOTE | 2023-06-02 14:50 | ED.UPPEXIN ---
HPI - Extremity Injury (Upper) General Chief Complaint: Extremity Injury, Upper Stated Complaint: Left Hand Pain Time Seen by Provider: 06/02/23 14:51 Source: patient Mode of arrival: ambulatory Limitations: no limitations History of Present Illness HPI narrative: Patient is a 52-year-old female who presents with left hand wrist and hand pain after fall a month ago. Patient states she thought it would improve over time. Reports intermittent tingling and numbness to wrist and 1st and 2nd digit. Has not been seen by PCP or had imaging done since incident. Related Data Home Medications Medication Instructions Recorded Confirmed estradiol 2 mg tablet 2 mg PO DAILY 04/09/20 06/02/23 venlafaxine 37.5 mg 37.5 mg PO DAILY 04/03/22 06/02/23 capsule,extended release 24 hr zolpidem 10 mg tablet 10 mg PO DAILY 07/24/22 06/02/23 Allergies Allergy/AdvReac Type Severity Reaction Status Date / Time codeine Allergy Intermediate Hives Verified 06/02/23 14:44 iodine Allergy Intermediate Hives Verified 06/02/23 14:44 Sulfa (Sulfonamide Allergy Intermediate Hives Verified 06/02/23 14:44 Antibiotics) Review of Systems Review of Systems: All systems reviewed & are unremarkable except as noted in HPI and below Constitutional: Constitutional: Denies body ache(s), Denies chills, Denies fatigue, Denies fever(s), Denies headache(s), Denies malaise and Denies weakness Eyes: Eyes: Denies blurry vision, Denies irritation and Denies loss of vision ENT: Denies otalgia, Denies headache(s), Denies nasal discharge, Denies sinus pain and Denies sore throat Cardiovascular: Cardiovascular: Denies chest pain, Denies irregular heart rhythm and Denies dyspnea Respiratory: Respiratory: Denies dyspnea Gastrointestinal: Gastrointestinal: Denies abdominal pain, Denies melena, Denies hematochezia, Denies diarrhea, Denies nausea and Denies vomiting Musculoskeletal: Musculoskeletal: Denies back pain, Denies myalgias and Reports arthralgias Integumentary/Breasts: Skin/Breast: Denies pruritus and Denies rash Neurologic: Denies headache(s), Denies loss of vision and Denies weakness Psychiatric: Psychiatric: Reports no additional psychiatric complaints Endocrine: Endocrine: Denies fatigue PMFSH Past Medical History Medical History Anxiety Arthritis Chronic nonspecific colitis Osteoporosis screening Rheumatoid arthritis with rheumatoid factor of multiple sites without organ or systems involvement Rotator cuff tear arthropathy of right shoulder Surgical History Surgical History H/O: hysterectomy Hx of right knee surgery Hx of shoulder surgery Family History Family History Father Cancer Hypertension Diabetes mellitus Depression Heart disease Mother Breast cancer Lung cancer Social History Social History Smoking status: Never smoker Second hand tobacco smoke exposure: No Alcohol intake: unknown Substance use: never Substance use type: does not use Living arrangements: with family Occupation/Education: occupation 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 There is no relevant family history pertinent to the presenting complaint. Exam Const: General: cooperative, healthy appearing, comfortable, no acute distress and well nourished Nutritional Appearance: well nourished Orientation/consciousness: patient oriented x3 Limitations: no limitations HENMT: Head: normal t
== END 2023-06-02 15:50 | disposition home or self-care (01) ==
PROVIDERS: Emergency Provider Nurse Practitioner Family; PCP Family Medicine
DX: S63.502A Unspecified sprain of left wrist, initial encounter (principal); S66.912A Strain of unspecified muscle, fascia and tendon at wrist and hand level, left hand, initial encounter; S62.661A Nondisplaced fracture of distal phalanx of left index finger, initial encounter for closed fracture; W19.XXXA Unspecified fall, initial encounter; F41.9 Anxiety disorder, unspecified; M19.90 Unspecified osteoarthritis, unspecified site; M05.79 Rheumatoid arthritis with rheumatoid factor of multiple sites without organ or systems involvement
CPT/HCPCS: 29130; 73130; 99214; G0463

== ENCOUNTER 2023-06-09 13:25 | Emergency (ER) | payer OTHER, SELFPAY ==
[2023-06-09 13:44] VITALS: BP 105/72; PULSE 91; RESP 16; TEMP 37.2; O2SAT 99
--- NOTE | 2023-06-09 13:48 | ED.URI ---
HPI - URI/Sore Throat General Chief Complaint: Upper Respiratory Infection Stated Complaint: fever, flu-like symptoms Time Seen by Provider: 06/09/23 13:50 Source: patient Mode of arrival: ambulatory Limitations: no limitations History of Present Illness HPI Narrative: Katie is a 52-year-old female patient presenting to the clinic today with complaints of flu-like symptoms. She reports she has got a fever, cough, congestion, body aches, and chills for the past 3 days. She denies any chest pain or shortness of breath. Highest fever was 102. Denies any sore throat MD elicited complaint: fever, cough and nasal congestion Related Data Home Medications Medication Instructions Recorded Confirmed estradiol 2 mg tablet 2 mg PO DAILY 04/09/20 06/09/23 venlafaxine 37.5 mg 37.5 mg PO DAILY 04/03/22 06/09/23 capsule,extended release 24 hr zolpidem 10 mg tablet 10 mg PO DAILY 07/24/22 06/09/23 meloxicam 15 mg tablet See Rx Instructions .Route .COMPLEX 06/09/23 06/09/23 Allergies Allergy/AdvReac Type Severity Reaction Status Date / Time codeine Allergy Intermediate Hives Verified 06/09/23 13:42 iodine Allergy Intermediate Hives Verified 06/09/23 13:42 Sulfa (Sulfonamide Allergy Intermediate Hives Verified 06/09/23 13:42 Antibiotics) Review of Systems Review of Systems: Pertinent positives per HPI. Patient denies any fever, chills, rash, headache, visual changes, dizziness, cough, shortness of breath, chest pain, palpitations, nausea, vomiting, diarrhea, constipation, abdominal pain, or any urinary issues. ON LICENSE OF [facility] Past Medical History Medical History Anxiety Arthritis Chronic nonspecific colitis Osteoporosis screening Rheumatoid arthritis with rheumatoid factor of multiple sites without organ or systems involvement Rotator cuff tear arthropathy of right shoulder Surgical History Surgical History H/O: hysterectomy Hx of right knee surgery Hx of shoulder surgery Family History Family History Father Cancer Hypertension Diabetes mellitus Depression Heart disease Mother Breast cancer Lung cancer Social History Social History Smoking status: Never smoker Second hand tobacco smoke exposure: No Alcohol intake: unknown Substance use: never Substance use type: does not use Living arrangements: with family Occupation/Education: occupation 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 There is no relevant family history pertinent to the patient complaint. Exam Narrative: General: Well-developed, well nourished, in no apparent distress Head: Normocephalic, atraumatic Eyes: Pupils equally round and reactive to light bilaterally, EOM intact, sclera and conjunctive clear, no discharge, lids normal Ears: TMs intact and congested, ear canals clear, no drainage, grossly hearing normal. Nose: Nares patent, clear discharge, moderate inflammation, no sinus tenderness. Mouth: Oral pharynx without lesions or masses, good dentition, MMM. Postnasal drip Neck: Supple, trachea midline, no enlargement of anterior or posterior cervical nodes, no thyroid masses or goiter palpable. Cardio: Regular rate and rhythm, s1 and s2 normal, no murmur appreciated. Resp: Clear to auscultation bilaterally, no rhonchi, rales, wheezing or rubs Course Course Emergency Course: Portions of this record may have been created with
== END 2023-06-09 14:10 | disposition home or self-care (01) ==
PROVIDERS: Emergency Provider Nurse Practitioner Family; PCP Family Medicine
DX: J10.1 Influenza due to other identified influenza virus with other respiratory manifestations (principal); M06.9 Rheumatoid arthritis, unspecified; Z79.899 Other long term (current) drug therapy; Z79.1 Long term (current) use of non-steroidal anti-inflammatories (NSAID); Z20.822 Contact with and (suspected) exposure to COVID-19
CPT/HCPCS: 87426; 87804; 99213; G0463

== ENCOUNTER 2023-12-27 10:54 | Outpatient (CLI) | payer OTHER, SELFPAY ==
--- NOTE | ~2023-12-27 | CT_ITS ---
Non-contrast Head CT History: Headache Technique: Axial non-contrast imaging of the brain was performed. Dose reduction technique was used on this scan by utilizing automated exposure control and iterative reconstruction technique. The dose -length product (DLP) was 599.57 mGy-cm. Findings: There is no evidence of intracranial hemorrhage, mass lesion, or acute infarct. Brain par enchyma appears normal. The ventricles and subarachnoid spaces are normal in size. The calvarium ap pears normal. The visualized paranasal sinuses and mastoid air cells are clear. Impression: No significant abnormality seen. Reviewed, dictated and finalized at location . Impression: No significant abnormality seen.
--- NOTE | ~2023-12-27 | XR_ITS ---
Left wrist Technique: PA, oblique, lateral, and ulnar deviation views were obtained. Clinical History: Pain Findings: No acute fracture or dislocation is seen. There is moderate to advanced degenerative change of the first CMC joint. Soft tissues are unremarkable. 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 Reviewed, dictated and finalized at [facility]. 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
== END 2023-12-27 10:55 | disposition home or self-care (01) ==
PROVIDERS: PCP Internal Medicine; Visit Provider Nurse Practitioner Family
DX: M18.12 Unilateral primary osteoarthritis of first carpometacarpal joint, left hand (principal); M25.562 Pain in left knee; R51.9 Headache, unspecified
CPT/HCPCS: 70450; 73110; 73562

== ENCOUNTER 2024-01-21 10:13 | Emergency (ER) | payer OTHER, SELFPAY ==
[2024-01-21 10:22] VITALS: BP 127/80; PULSE 80; RESP 16; TEMP 36.2; O2SAT 99
[2024-01-21 10:25] VITALS: BP 127/80; PULSE 80; RESP 16; TEMP 36.2; O2SAT 99
--- NOTE | 2024-01-21 10:37 | ED.SKABFB ---
HPI - Skin/Abscess/Foreign Bdy General Chief complaint: Extremity Injury, Upper Stated complaint: left wrist issue Source: patient Mode of arrival: ambulatory Limitations: no limitations History of Present Illness HPI narrative: 53-year-old female presents to [facility] with complaints of area of excoriation, Mild swelling and redness to her left wrist for the past week. Patient reports that she received a cortisone injection to her left wrist approximately 1 month ago And her symptoms are at site of injection. Patient reports that she called rheumatology office that completed the injection this week but has not heard back from them. patient denies shortness of breath, fever, body aches, chills, chest pain or decreased range of motion. Patient has long history of left wrist pain. Patient reports that she does apply cool compress to the area times. MD complaint: rash Onset (ago): month(s) (1) Location: LUE Associated symptoms: denies other symptoms Related Data Home Medications Medication Instructions Recorded Confirmed estradiol 2 mg tablet 2 mg PO DAILY 04/09/20 01/21/24 venlafaxine 37.5 mg 37.5 mg PO DAILY 04/03/22 01/21/24 capsule,extended release 24 hr zolpidem 10 mg tablet 10 mg PO DAILY 07/24/22 01/21/24 folic acid 1 mg tablet 1 mg PO DAILY 01/21/24 01/21/24 gabapentin 100 mg capsule 100 mg PO TID 01/21/24 01/21/24 Allergies Allergy/AdvReac Type Severity Reaction Status Date / Time codeine Allergy Intermediate Hives Verified 01/21/24 10:22 iodine Allergy Intermediate Hives Verified 01/21/24 10:22 Sulfa (Sulfonamide Allergy Intermediate Hives Verified 01/21/24 10:22 Antibiotics) Review of Systems Constitutional: Constitutional: Denies chills, Denies fatigue, Denies fever(s) and Denies weakness ENT: Denies nasal congestion and Denies sore throat Cardiovascular: Cardiovascular: Denies chest pain Respiratory: Respiratory: Denies cough, Denies dyspnea and Denies wheezing Gastrointestinal: Gastrointestinal: Denies diarrhea, Denies nausea and Denies vomiting Musculoskeletal: Musculoskeletal: Denies arthralgias, Denies joint swelling and Denies muscle cramps Integumentary/Breasts: Skin/Breast: Denies pruritus, Reports erythema, Reports rash and Denies skin ulcer Neurologic: Denies vertigo and Denies dizziness PMFSH Past Medical History Medical History Anxiety Arthritis Chronic nonspecific colitis Osteoporosis screening Rheumatoid arthritis with rheumatoid factor of multiple sites without organ or systems involvement Rotator cuff tear arthropathy of right shoulder Surgical History Surgical History H/O: hysterectomy Hx of right knee surgery Hx of shoulder surgery Family History Family History Father Cancer Hypertension Diabetes mellitus Depression Heart disease Mother Breast cancer Lung cancer Social History Social History Smoking status: Never smoker Second hand tobacco smoke exposure: No Alcohol intake: unknown Substance use: never Substance use type: does not use Living arrangements: with family Occupation/Education: occupation 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 There is no relevant family history pertinent to the presenting complaint. Exam Const: General: healthy appearing and no acute distress Nutritional Appearance: well nourished Orientation/consciousness: patient oriented x3 Limitations: no
== END 2024-01-21 10:51 | disposition home or self-care (01) ==
PROVIDERS: Emergency Provider Nurse Practitioner Family; PCP Nurse Practitioner Family
DX: I80.9 Phlebitis and thrombophlebitis of unspecified site (principal); L03.114 Cellulitis of left upper limb; M19.90 Unspecified osteoarthritis, unspecified site; F41.9 Anxiety disorder, unspecified; M05.79 Rheumatoid arthritis with rheumatoid factor of multiple sites without organ or systems involvement
CPT/HCPCS: 99213; G0463

== ENCOUNTER 2024-04-25 16:02 | Emergency (ER) | payer OTHER, SELFPAY ==
--- NOTE | ~2024-04-25 | XR_ITS ---
EXAMINATION: XR chest 2V DATE: 04/25/2024 16:52 INDICATION: Cough and congestion. TECHNIQUE: Frontal and lateral views of the chest were obtained. COMPARISON: Chest 2 views 05/18/2021 FINDINGS: There is no pneumonia, pleural effusion, or pneumothorax. The heart size is normal. There i s mild chronic anterior wedging of multiple mid thoracic vertebral bodies. IMPRESSION: 1. No acute cardiopulmonary disease. Reviewed, dictated and finalized at location B. GE TURNER
[2024-04-25 16:08] VITALS: BP 124/88; PULSE 71; RESP 16; TEMP 36.6; O2SAT 99
--- NOTE | 2024-04-25 17:28 | ED_ITS ---
HPI - URI/Sore Throat General Chief Complaint: Upper Respiratory Infection Stated Complaint: Sinus Source: patient, RN notes reviewed and old records reviewed Mode of arrival: ambulatory Limitations: no limitations History of Present Illness HPI Narrative: Patient presents with complaints of sinus pain in congestion, cough. She reports that she has been sick for almost 4 weeks. She reports the symptoms began as sinus type symptoms, feels as though they have ?moved to my chest?. She has been taking multiple [id number] medications with moderate relief. She reports that cough use be more productive, now feels as though she is having difficulty expect rating. She denies any shortness of breath. Does report occasional wheeze Related Data Home Medications ?Medication ?Instructions ?Recorded ?Confirmed ?Last Taken ?Type estradiol 2 mg tablet 2 mg PO DAILY 04/09/20 01/21/24 Unknown History venlafaxine 37.5 mg 37.5 mg PO DAILY 04/03/22 01/21/24 Unknown History capsule,extended release 24 hr zolpidem 10 mg tablet 10 mg PO DAILY 07/24/22 01/21/24 Unknown History folic acid 1 mg tablet 1 mg PO DAILY 01/21/24 01/21/24 Unknown History gabapentin 100 mg capsule 100 mg PO TID 01/21/24 01/21/24 Unknown History Allergies Allergy/AdvReac Type Severity Reaction Status Date / Time codeine Allergy Intermediate Hives Verified 04/25/24 16:06 iodine Allergy Intermediate Hives Verified 04/25/24 16:06 Sulfa (Sulfonamide Allergy Intermediate Hives Verified 04/25/24 16:06 Antibiotics) Review of Systems Review of Systems: All systems reviewed & are unremarkable except as noted in HPI and below Constitutional: Constitutional: Reports no additional constitutional complaints, Reports headache(s) and Reports lethargy ENT: Reports system reviewed and no additional complaints, except as documented, Reports nasal congestion, Reports nasal discharge, Reports sinus pain, Reports sinus pressure and Reports sore throat Cardiovascular: Cardiovascular: Reports no additional cardiovascular complaints Respiratory: Respiratory: Reports no additional respiratory complaints, Reports cough and Reports wheezing Gastrointestinal: Gastrointestinal: Reports no additional gastrointestinal complaints [facility] Past Medical History Medical History Osteoporosis screening Chronic nonspecific colitis Rheumatoid arthritis with rheumatoid factor of multiple sites without organ or systems involvement Rotator cuff tear arthropathy of right shoulder Arthritis Anxiety Surgical History Surgical History Hx of right knee surgery Hx of shoulder surgery H/O: hysterectomy Family History Family History Father Cancer Hypertension Diabetes mellitus Depression Heart disease Mother Breast cancer Lung cancer Social History Social History Smoking status: Never smoker Second hand tobacco smoke exposure: No Alcohol intake: unknown Substance use: never Substance use type: does not use Living arrangements: with family Occupation/Education: occupation 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 Gender identity (if verbalized by the patient): Female Sexual Orientation (if Verbalized by the Patient): Straight or Heterosexual Spiritual care concerns: No Agree to blood products: Yes Comments At the time of my signature, I reviewed and agree with the nursing past medical, surgical, social, and family history. There is no relevant family history pertinent to the patient complaint. Exam Const: General: cooperative, no acute distress, alert and awake Orientation/consciousness: oriented to person, oriented to place and oriented to time HENMT: Head: normal to inspection Ears: TM abnormal dull bilateral Face and sinus: sinus tenderness maxillary (right) Mouth: Yes moist mucous membranes Throat: posterior oropharynx abnormal erythema Resp: Effort & Inspection: normal respiratory effort and able to speak in complete sentences Auscultation: clear to auscultation bilaterally, no crackles, no rales, no rhonchi and no wheezes Cardio: Palpation: normal PMI Rate: regular rate Rhythm: regular rhythm Heart sounds: S1 normal heart sound present and S2 normal heart sound present Neuro: General: oriented to person, oriented to place and oriented to time Cranial nerves: Yes CN's II-XII intact bilaterally Psych: Appearance: grossly normal Thought process: Normal thought process present Insight: Good insight present (Psych) Judgement: Good judgement present (Psych) Course Course Level of Care: Express Care Visit Vital Signs Vital signs: Vital Signs Temperature 97.9 F 04/25/24 16:08 Pulse Rate 71 04/25/24 16:08 Respiratory Rate 16 04/25/24 16:08 Blood Pressure 124/88 04/25/24 16:08 Pulse Oximetry 99 01/23/25 16:08 Oxygen Delivery Room Air 04/25/24 16:08 Temperature 97.9 F 04/25/24 16:08 Pulse Rate 71 04/25/24 16:08 Respiratory Rate 16 04/25/24 16:08 Blood Pressure 124/88 04/25/24 16:08 Pulse Oximetry 99 04/25/24 16:08 Oxygen Delivery Room Air 04/25/24 16:08 Reviewed MDM - URI/Sore Throat MDM Narrative Medical decision making narrative: Chest x-ray with no acute process noted. Patient nontoxic appearing. History and exam consistent with sinusitis. Patient nontoxic appearing, stable for discharge home with p.o. antibiotic therapy. Steroid burst Discharge instructions reviewed with patient, as well as provided in writing per nursing staff. The instructions also include specific and strict return/GO TO THE ER as well as f/u information. All questions have been answered, and the patient deny any further questions with discharge and discharge plan. Some parts of this dictation were generated by voice recognition software and may contain typographical and/or grammatical inaccuracies. Differential Diagnosis Differential diagnosis: Likely upper respiratory infection, sinusitis, viral infection and bronchitis Medical Records Attestation: I reviewed the patient's medical records. Imaging Data My impression: negative chest Radiologist's impression: [facility] [address] [place] [address] XRay Report Signed Patient: Katie England : 1970 MR#: [id number] Age: 53 Acct:[id number] Loc: [facility] ADM Date: 04/25/24Attending Dr: Ordering Physician: Jayashree Heart FNP Date of Service: 04/25/24 Procedure(s): XR chest 2V Accession Number(s): [id number] cc: Jayashree Heart FNP; Alexis, Rosario Keenan NP~ EXAMINATION: XR chest 2V DATE: 04/25/2024 16:52 INDICATION: Cough and congestion. TECHNIQUE: Frontal and lateral views of the chest were obtained. COMPARISON: Chest 2 views 05/18/2021 FINDINGS: There is no pneumonia, pleural effusion, or pneumothorax. The heart size is normal. There is mild chronic anterior wedging of multiple mid thoracic vertebral bodies. IMPRESSION: 1. No acute cardiopulmonary disease. Reviewed, dictated and finalized at location B. INE ATTENDANT Please be advised this is a medical document. It is intended for [id number] communication. It is written in medical language and may contain unfamiliar abbreviations or verbiage. Medical documents are intended to carry relevant information, facts as evident, and the clinical opinion of the practitioner at the time of the encounter. This report may have been done utilizing a voice recognition system. Attempts have been made to correct errors. However, there may be uncorrected grammatical, spelling, and recognition errors present. The file time of this note does not necessarily represent the time of service. Dictated By: Juan Astorga MD 04/25/241653 Signed By: <Electronically signed by Juan Astorga MD in OV> 04/25/241654 Discharge Plan Discharge Clinical Impression: Sinusitis Qualifiers: Sinusitis location: maxillary Chronicity: acute Recurrence: not specified as recurrent Qualified Code(s): J01.00 - Acute maxillary sinusitis, unspecified Patient Disposition: Home, Self-Care Condition: Stable Instructions: Antibiotic Form, Sinusitis (ED) Additional Instructions: Take medications as prescribed. Follow with primary care provider. Emergency department for new or worse Patient Language: Indonesian Prescriptions: New doxycycline hyclate 100 mg capsule 100 mg PO BID Qty: 14 0RF prednisone 50 mg tablet 50 mg PO DAILY Qty: 5 0RF No Action venlafaxine 37.5 mg capsule,extended release 24hr 37.5 mg PO DAILY loratadine 10 mg tablet 10 mg PO DAILY Qty: 30 0RF estradiol 2 mg Tablet 2 mg PO DAILY zolpidem 10 mg tablet 10 mg PO DAILY folic acid 1 mg tablet 1 mg PO DAILY gabapentin 100 mg capsule 100 mg PO TID Follow-up/Referrals: Iris,Rosario Keenan NP [Primary Care Provider] - 2 Weeks Time of Disposition: 17:39
== END 2024-04-25 17:46 | disposition home or self-care (01) ==
PROVIDERS: Emergency Provider Nurse Practitioner Family; PCP Nurse Practitioner Family
DX: J01.00 Acute maxillary sinusitis, unspecified (principal); M05.79 Rheumatoid arthritis with rheumatoid factor of multiple sites without organ or systems involvement; M19.90 Unspecified osteoarthritis, unspecified site; F41.9 Anxiety disorder, unspecified
CPT/HCPCS: 71046; 99213; G0463